=== PATIENT | male | born 1990 | race Caucasian/White ===

== ENCOUNTER 2016-02-15 15:47 | Emergency (ER) | payer SELFPAY ==
[2016-02-15 15:53] VITALS: PULSE 81; RESP 16; O2SAT 93
[2016-02-15 15:59] VITALS: TEMP 98.2
--- NOTE | 2016-02-15 16:11 | EDPHY ---
H & P Stated Complaint: Left shoulder dislocation Time Seen by Provider: 02/15/16 16:10 HPI/ROS: CHIEF COMPLAINT: Recurrent traumatic left shoulder dislocation HISTORY OF PRESENT ILLNESS: The patient presents the emergency department after he sustained a recurrent traumatic left shoulder dislocation while snowboarding earlier today. The patient has a history of subluxation x4 in the past. He is not had surgery on the shoulder. He denies any focal numbness or weakness. He did not strike his head or lose consciousness. The patient was brought in by paramedics from the [facility]. He did receive IV fentanyl 100 mcg and IV morphine 10 mg prior to arrival. In the ED, the patient reports moderate to severe pain in his left shoulder. He denies additional injury. REVIEW OF SYSTEMS: A comprehensive 10 point review of systems is otherwise negative aside from elements mentioned in the history of present illness. Source: Patient Exam Limitations: No limitations - Personal History Current Tetanus/Diphtheria Vaccine: Yes - Medical/Surgical History Hx Asthma: No Hx Chronic Respiratory Disease: No Hx Diabetes: No Hx Cardiac Disease: No Hx Renal Disease: No Hx Cirrhosis: No Hx Alcoholism: No Hx HIV/AIDS: No Hx Splenectomy or Spleen Trauma: No - Social History Smoking Status: Never smoked - Physical Exam Exam: General Appearance: Alert, no distress Head: Atraumatic Eyes: Pupils equal, round, reactive ENT, Mouth: No hemotympanum, no oral trauma Neck: Nontender, trachea midline Respiratory: No chest wall tender, subcutaneous air, lungs clear bilaterally Cardiovascular: Regular rate and rhythm Abdomen: Abdomen is soft and nontender, pelvis stable Skin: No lacerations, No abrasion Back: No midline T/L/S pain Extremities: Left shoulder held in a position external rotation and flexion. Clinically patient is noted to have a empty glenoid fossa and presents with classic clinical anterior shoulder dislocation. Neurological: A&Ox3, normal motor function, normal sensory exam Constitutional: Initial Vital Signs Temperature (C) 36.8 C 02/15/16 15:51 Heart Rate 81 02/15/16 15:51 Respiratory Rate 16 02/15/16 15:51 Blood Pressure 169/115 H 02/15/16 15:51 O2 Sat (%) 93 02/15/16 15:51 O2 Delivery Mode Room Air Allergies/Adverse Reactions: No Known Allergies Allergy (Unverified 02/15/16 15:51) Home Medications: Medication Instructions Recorded Hydrocodone/APAP 5/325 [Plainfield 1 - 2 each PO Q6 PRN #20 tab 02/15/16 5/325] Medical Decision Making - Diagnostics Imaging: Left shoulder x-ray (post reduction): Reduce glenohumeral joint, no evidence of acute fracture or dislocation by my interpretation. Procedures: Procedure: Dislocation reduction. The shoulder was reduced in the usual fashion without complications. The patient did receive IV fentanyl and IV morphine prior to arrival. He was placed on supplemental oxygen. The patient's shoulder was easily reduced using the Pean technique. Post reduction the patient's neurovascular exam is normal. Post reduction x-ray demonstrates reduction of the joint to the anatomic position. The procedure was performed by myself. ED Course/Re-evaluation: The patient presents to the ED with a dislocation of his left glenohumeral joint which was easily reduced in the emergency department. He was neurologically intact following the procedure. Post reduction x-ray demonstrated no evidence of a Hill-Sachs lesion or Bankart fracture. The patient will be placed in a sling. He is given a prescription for [place] 10 to use as needed for severe pain. He should use ibuprofen as needed. Patient will follow up with our on-call orthopedic surgeon to review his history of multiple traumatic dislocations. Differential Diagnosis: Differential diagnosis considered includes fracture, sprain, dislocation, neurovascular injury Departure - Departure Disposition: Home, Routine, Self-Care Clinical Impression: Dislocation of left shoulder joint Condition: Good Instructions: Shoulder Dislocation (ED) Additional Instructions: 1. Sling as needed for comfort. 2. Take Ibuprofen or Motrin 600 mg by mouth three times a day. 3. [place] as needed for severe pain 4. You have been provided contact number of our on-call orthopedic surgeon. I do recommend a follow-up visit with him to discuss your history of multiple recurrent dislocations and the possible role of surgery in stabilizing this condition. Referrals: Tatiana Francis MD [Medical Doctor] - As per Instructions Prescriptions: Hydrocodone/APAP 5/325 [Pl[place]field 5/325] 1 - 2 each PO Q6 PRN #20 tab PRN Reason: for pain
[2016-02-15 16:23] VITALS: BP 160/90
--- NOTE | 2016-02-15 16:32 | DX ---
Left Shoulder, Three Views dated February 15, 2016 Indication: Shoulder dislocation. Postreduction. Findings: The bones are anatomically aligned. No fracture or deformity of the humeral head. The corac oclavicular and acromioclavicular intervals are normal. Impression: Good anatomic reduction. No discernible fracture.
== END 2016-02-15 16:24 | disposition home or self-care (01) ==
PROC: 0RSKXZZ Reposition Left Shoulder Joint, External Approach (ICD-10-PCS; principal; 2016-02-15)
DX: M24.412 Recurrent dislocation, left shoulder (principal); V00.318A Other snowboard accident, initial encounter; Y93.23 Activity, snow (alpine) (downhill) skiing, snowboarding, sledding, tobogganing and snow tubing
CPT/HCPCS: A4565